=== PATIENT | female | born 1965 | race Caucasian/White ===

== ENCOUNTER → 2025-04-08 | Outpatient (CLI) | payer OTHER ==
[~2025-04-08] MED LIST: Aspir 8181 MG PO; Augmentin 875-1 EACH PO; Bactrim Ds Tab1 EACH PO; CEPH500 PO; Cleocin HCl300 MG PO; EC-Naprosyn500 MG PO; HYDACE5325 PO; IBUP600 PO; IBUP800 PO; LEVFLO500 PO; NAPR550 PO; Ultram50 MG PO; Vibramycin100 MG PO
[2025-04-09 10:27] LABS: Stool Occult Bld Immuno 1 Positive (NEGATIVE)
== END ==
LOC: LAB SHORT 06:00 → LAB 06:00
PROVIDERS: Physician Assistant
DX: Z01.419 Encounter for gynecological examination (general) (routine) without abnormal findings (principal); Z12.11 Encounter for screening for malignant neoplasm of colon
CPT/HCPCS: 87624; G0123; G0328